=== PATIENT | male | born 1965 | race Caucasian/White ===

== ENCOUNTER 2023-09-23 16:20 | Emergency (ER) | payer BC, SELFPAY ==
--- NOTE | ~2023-09-23 | XR_ITS ---
EXAMINATION: XR CHEST CLINICAL INFORMATION: Chest pain. COMPARISON: None available. TECHNIQUE: 2 views of the chest were obtained. FINDINGS: The trachea is in normal anatomic position. Heart size is normal. The lungs are clear. There is no pleural effusion or pneumothorax. No acute osseous abnormality. XR/XR chest 2V IMPRESSION: No acute cardiopulmonary disease.
--- NOTE | 2023-09-23 16:24 | ECG_ITS ---
Test Reason : CP Blood Pressure : / mmHG Vent. Rate : 079 BPM Atrial Rate : 079 BPM P-R Int : 162 ms QRS Dur : 094 ms QT Int : 388 ms P-R-T Axes : 067 061 058 degrees QTc Int : 444 ms Sinus rhythm with Premature supraventricular complexes Minimal voltage criteria for LVH, may be normal variant ( Sokolow-Cotto ) Borderline ECG No previous ECGs available Referred By: Maria L Rodriguez Electronically Signed By:ERIK JONES
--- NOTE | 2023-09-23 16:39 | ED.GENADULT ---
HPI - General Adult General Chief complaint: Chest Pain Stated complaint: Chest pain 2-3 days, chest spasm, dizziness Time Seen by Provider: 09/23/23 18:08 Related Data Allergies Allergy/AdvReac Type Severity Reaction Status Date / Time No Known Allergies Allergy Verified 09/23/23 16:44 [facility] Social History Social History Alcohol intake: current Smoked in Last 30 Days: No Use of substances other than those prescribed or required for medical reasons: No Advance Directives: No Advance Directives Information Provided: No Physical Exam ED Vital Signs: BMI result Body Mass Index 26.2 Course Course Course Narrative: This is an RME: Additional HPI, ROS, PE not included below will be deferred to primary provider. 58 yo m with pmhx of HTN presents with chest tightness for the last few days, with l sided chest pain and dizziness today. Reports 7 [address] ride today. Denies SOB, fevers, chills, nausea, vomiting. Medical Decision Making Lab Data 09/23/23 16:49 09/23/23 16:49 Labs: Lab Results 09/23/23 09/23/23 Range/Units 16:49 18:30 WBC 6.8 (4.8-10.8) X10*3/uL RBC 4.54 L (4.60-5.80) X10*6/uL Hgb 14.5 (14.0-18.0) g/dl Hct 43.2 (42.0-52.0) % MCV 95.2 (80.0-98.0) fL MCH 31.9 (27.0-33.0) pg MCHC 33.6 (31.0-36.0) g/dl RDW 14.1 (11.0-16.0) % Plt Count 258 (160-400) X10*3/uL MPV 10.2 (9.4-12.4) fL Immature Gran % (Auto) 0.1 (0.0-0.4) % Neut % (Auto) 49.2 (45-73) % Lymph % (Auto) 37.0 (20-40) % [place] % (Auto) 9.8 (2-11) % Eos % (Auto) 3.3 (0-4) % Baso % (Auto) 0.6 (0-2) % Lymph # (Auto) 2.5 (1.2-4.9) X10*3/uL [place] # (Auto) 0.7 (0.1-1.2) X10*3/uL Eos # (Auto) 0.2 (0.0-0.4) X10*3/uL Baso # (Auto) 0.0 (0.0-0.2) X10*3/uL Abs Immat Gran (auto) 0.01 (0.00-0.03) X10*3/uL Absolute Neuts (auto) 3.3 (2.0-8.3) x10*3/uL Absolute Nucleated RBC 0.000 (0.0-0.012) X10*3/uL Nucleated RBC % (auto) 0.0 (0.0-0.2) /100WBC Sodium 140 (135-145) mmol/L Potassium 4.4 (3.3-5.1) mmol/L Chloride 106 (96-108) mmol/L Carbon Dioxide 25 (22-29) mmol/L Anion Gap 13 (12-20) BUN 17 H (9-16) mg/dL Creatinine 0.76 (0.5-1.4) mg/dL Estim Creat Clear Calc 108.5 Estimated GFR > 60 Random Glucose 112 (60-115) mg/dL Calcium 9.6 (8.4-10.2) mg/dL Total Bilirubin 0.8 (0.0-1.0) mg/dL AST 20 (5-37) U/L ALT 15 (0-40) U/L Alkaline Phosphatase 61 (39-117) U/L Troponin I High Sens < 2.7 2.8 (<3.5-35.0) ng/L Total Protein 7.5 (6.5-8.0) g/dL Albumin 4.6 (3.5-5.0) g/dL Discharge Plan Discharge Clinical Impression: Chest pain Patient Disposition: Home, Self-Care Additional Instructions: You were seen emergency room for chest pain. Follow-up with your primary care physician next week EKG showed signs of left ventricular hypertrophy is sign of chronic hypertension, serial troponin, BMP, CBC and chest x-ray were within normal limits. If in the meantime you experience other chest pain lasting more than 10 50 minutes please return to the emergency room for evaluation Interventions: ED Discharge Assessment Last Done: 09/23/23 19:20 Discharge Date/Time: 09/23/23 19:42 Print Language: Indian
[2023-09-23 16:40] VITALS: BP 187/92; PULSE 77; RESP 18; TEMP 36.8; O2SAT 99; BMI 26.2
[2023-09-23 16:53] LABS: MANUAL DIFF FLAG NO
[2023-09-23 16:56] LABS: Basophils Percent Auto 0.6 % (0-2); Eosinophils Absolute Auto 0.2 X10*3/uL (0.0-0.4); Eosinophils Percent Auto 3.3 % (0-4); Hematocrit 43.2 % (42.0-52.0); Hemoglobin 14.5 g/dl (14.0-18.0); Imm Gran Abs Auto 0.01 X10*3/uL (0.00-0.03); Imm Gran Pct Auto 0.1 % (0.0-0.4); Lymphocytes Absolute Auto 2.5 X10*3/uL (1.2-4.9); Mean Corpuscular HGB Conc 33.6 g/dl (31.0-36.0); Mean Corpuscular Hemoglobin 31.9 pg (27.0-33.0); Mean Corpuscular Volume 95.2 fL (80.0-98.0); Mean Platelet Volume 10.2 fL (9.4-12.4); Monocytes Absolute Auto 0.7 X10*3/uL (0.1-1.2); Monocytes Percent Auto 9.8 % (2-11); Neutrophils Absolute Auto 3.3 x10*3/uL (2.0-8.3); Neutrophils Percent Auto 49.2 % (45-73); Platelet Count 258 X10*3/uL (160-400); Red Blood Count 4.54 X10*6/uL (4.60-5.80); Red Cell Distribution Width 14.1 % (11.0-16.0); White Blood Count 6.8 X10*3/uL (4.8-10.8)
[2023-09-23 17:08] LABS: Alanine Aminotransferase 15 U/L (0-40); Albumin Level 4.6 g/dL (3.5-5.0); Alkaline Phosphatase 61 U/L (39-117); Anion Gap 13 (12-20); Aspartate Amino Transferase 20 U/L (5-37); Bilirubin Total 0.8 mg/dL (0.0-1.0); Blood Urea Nitrogen 17 mg/dL (9-16); Calcium 9.6 mg/dL (8.4-10.2); Carbon Dioxide 25 mmol/L (22-29); Chloride 106 mmol/L (96-108); Creatinine Clr Calc Pharmacy 108.5; Estimated Glomerular Filt Rate > 60; Glucose Random 112 mg/dL (60-115); Potassium 4.4 mmol/L (3.3-5.1); Sodium 140 mmol/L (135-145); Total Protein 7.5 g/dL (6.5-8.0)
[2023-09-23 17:23] LABS: Troponin-I High Sensitivity < 2.7 ng/L (<3.5-35.0)
--- NOTE | 2023-09-23 18:20 | ED.CHESTPAIN ---
HPI - Chest Pain General Chief Complaint: Chest Pain Stated Complaint: Chest pain 2-3 days, chest spasm, dizziness Time Seen by Provider: 09/23/23 18:08 History of Present Illness HPI narrative: 58 years old with a past medical history of hypertension, presents to the emergency room for chest pain. Patient reports that he is being having intermittent, not exertional chest pain over the past few days. Patient reports that he is active, works out with a spinning bite often throughout the week and never experienced exertional chest pain, he also reports no shortness of breath. Patient was driving [place] from [place] in order to visit his daughter who attends college at [employer] when he started having chest pain and stopped at [facility] for workup. Patient reports that before the pain started he had sensation of ?anxiety ?. He denies cough, chills or fever No abdominal pain nausea or vomiting. At time of examination patient reports the pain has improved but he still feels ?some pressure ?his EKG done in triage showed signs of LVH, patient reports that he had an EKG in June that was okay but in the past he was told that he had LVH and had a stress test for this reason 5-6 years ago which was negative. Related Data Allergies Allergy/AdvReac Type Severity Reaction Status Date / Time No Known Allergies Allergy Verified 09/23/23 16:44 Review of Systems Review of Systems: Yes all other systems are reviewed and are negative [facility] Social History Social History Alcohol intake: current Smoked in Last 30 Days: No Use of substances other than those prescribed or required for medical reasons: No Advance Directives: No Advance Directives Information Provided: No Physical Exam Vital Signs: Vital Signs: Last Vital Signs Temp 97.6 F 09/23/23 18:28 Pulse 82 09/23/23 18:28 Resp 16 09/23/23 18:28 BP 185/107 H 09/23/23 18:28 Pulse Ox 97 09/23/23 18:28 O2 Del Method Room Air 09/23/23 18:28 BMI result Body Mass Index 26.2 General: Alert, Not in Distress Skin: No rash, warm HEENT: Atraumatic, No Exudate or Pharyngeal Erythema Resp: Normal Breath sounds bilaterally Cardio: Regular rate and Rhythm, Normal S1, S2 ABD: Abd soft, non tender, no guarding or rebound. Normal Bowel sounds. : No cva tenderness Neuro: Alert, oriented x4, PERRL Strenght 5/5 on all extremities Sensation is preserved in both lower and upper extremities Index to nose: normal Cranial Nerves II-XII grossly intact No dysarthria, or aphasia No neglet. Visual dumont are normal bilaterally Psych: Cooperative, NO SI Course Reevaluation(s) Reevaluation #1: Patient's 2nd troponin is negative. I personally reviewed and interpreted the patient's chest x-ray which shows no consolidation. At this time I do not think patient requires admission for chest pain workup, I recommended him to follow up with his primary care physician next week because he may need a stress test. Patient understands and agrees with plan. We will DC home Time: 19:05 Medical Decision Making Medical Decision Making [facility] Narrative: Patient presented to the emergency room for chest pain. Pain does not have typical fissures however patient has history of hypertension and due to his age his heart score is 3. His initial EKG showed signs of LVH but no signs of acute ischemia, his 1st troponin is negative and a CBC and BMP are unremarkable. Plan Second troponin Chest x-ray As for is travel today patient reports that he is being having chest pain even before the trip and I have low concern for this being pulmonary embolism in consideration that patient does not have any associated respiratory symptoms. Admission/Observation Consideration of admission/observation: Escalation of care including admission/observation considered Lab Data [facility] Lab Attestation statement: I reviewed the patient's lab results. Negative first troponin 09/23/23 16:49 09/23/23 16:49 Labs: Lab Results 09/23/23 09/23/23 Range/Units 16:49 18:30 WBC 6.8 (4.8-10.8) X10*3/uL RBC 4.54 L (4.60-5.80) X10*6/uL Hgb 14.5 (14.0-18.0) g/dl Hct 43.2 (42.0-52.0) % MCV 95.2 (80.0-98.0) fL MCH 31.9 (27.0-33.0) pg MCHC 33.6 (31.0-36.0) g/dl RDW 14.1 (11.0-16.0) % Plt Count 258 (160-400) X10*3/uL MPV 10.2 (9.4-12.4) fL Immature Gran % (Auto) 0.1 (0.0-0.4) % Neut % (Auto) 49.2 (45-73) % Lymph % (Auto) 37.0 (20-40) % [place] % (Auto) 9.8 (2-11) % Eos % (Auto) 3.3 (0-4) % Baso % (Auto) 0.6 (0-2) % Lymph # (Auto) 2.5 (1.2-4.9) X10*3/uL [place] # (Auto) 0.7 (0.1-1.2) X10*3/uL Eos # (Auto) 0.2 (0.0-0.4) X10*3/uL Baso # (Auto) 0.0 (0.0-0.2) X10*3/uL Abs Immat Gran (auto) 0.01 (0.00-0.03) X10*3/uL Absolute Neuts (auto) 3.3 (2.0-8.3) x10*3/uL Absolute Nucleated RBC 0.000 (0.0-0.012) X10*3/uL Nucleated RBC % (auto) 0.0 (0.0-0.2) /100WBC Sodium 140 (135-145) mmol/L Potassium 4.4 (3.3-5.1) mmol/L Chloride 106 (96-108) mmol/L Carbon Dioxide 25 (22-29) mmol/L Anion Gap 13 (12-20) BUN 17 H (9-16) mg/dL Creatinine 0.76 (0.5-1.4) mg/dL Estim Creat Clear Calc 108.5 Estimated GFR > 60 Random Glucose 112 (60-115) mg/dL Calcium 9.6 (8.4-10.2) mg/dL Total Bilirubin 0.8 (0.0-1.0) mg/dL AST 20 (5-37) U/L ALT 15 (0-40) U/L Alkaline Phosphatase 61 (39-117) U/L Troponin I High Sens < 2.7 2.8 (<3.5-35.0) ng/L Total Protein 7.5 (6.5-8.0) g/dL Albumin 4.6 (3.5-5.0) g/dL Independent Interpretation I performed an independent interpretation of an: EKG (I personally reviewed and interpreted the patient's EKG that shows sinus rhythm with LVH) and Plain X-Ray (Personally interpreted and reviewed: Normal chest x-ray) Chronic Conditions Patient?s care impacted by: Hypertension Discharge Plan Discharge Clinical Impression: Chest pain Patient Disposition: Home, Self-Care Additional Instructions: You were seen emergency room for chest pain. Follow-up with your primary care physician next week EKG showed signs of left ventricular hypertrophy is sign of chronic hypertension, serial troponin, BMP, CBC and chest x-ray were within normal limits. If in the meantime you experience other chest pain lasting more than 10 50 minutes please return to the emergency room for evaluation Print Language: Belgian
[2023-09-23 18:28] VITALS: BP 185/107; PULSE 82; RESP 16; TEMP 36.4; O2SAT 97
[2023-09-23 18:59] LABS: Troponin-I High Sensitivity 2.8 ng/L (<3.5-35.0)
[2023-09-23 19:20] VITALS: BP 161/102; PULSE 67; RESP 19; TEMP 36.7; O2SAT 100
== END 2023-09-23 19:42 | disposition home or self-care (01) ==
PROVIDERS: Physician Assistant; Emergency Provider Student in an Organized Health Care Education/Training Program
DX: R07.9 Chest pain, unspecified (principal); I10 Essential (primary) hypertension
CPT/HCPCS: 36415; 71046; 80053; 84484; 85025; 93005; 99283; 99285

== ENCOUNTER → 2023-09-23 16:24 | Outpatient (BNV) | payer BC, SELFPAY | PROVIDERS: Emergency Provider Student in an Organized Health Care Education/Training Program; Visit Provider Internal Medicine | DX: I49.3 Ventricular premature depolarization (principal) | CPT/HCPCS: 93010 ==